=== PATIENT | male | born 1970 | race Caucasian/White ===

== ENCOUNTER 2017-03-13 21:07 | Observation (INO) | payer BC ==
[~2017-03-13] VITALS: Ht 190.5 cm; Wt 104.4 kg
[2017-03-13 21:30] LABS: HEMATOCRIT 48.2 % (38.0-50.0); MCH 29.9 PG (29.0-34.0); MCV 87.8 FL (86-99); MEAN PLAT.VOLUME 11.5 uM^3 (9.0-12.4); PLATELET COUNT 176 K/uL (156-360); RBC DIS.WIDTH-CV 12.3 % (11.8-14.6); RBC DIS.WIDTH-SD 39.8 % (39-53); RED BLOOD COUNT 5.49 M/uL (4.00-5.50); WHITE BLOOD COUNT 5.9 K/uL (4.1-10.2)
[2017-03-13 21:38] LABS: CHLORIDE 105 mEq/L (99-109); POTASSIUM 3.9 mEq/L (3.7-5.4); SODIUM 141 mEq/L (136-147)
[2017-03-13 21:39] LABS: GLUCOSE 105 mg/dL (70-99)
[2017-03-13 21:41] LABS: ANION GAP 10 MEQ/L (2-14)
[2017-03-13 21:44] LABS: UREA NITROGEN (BUN) 20 mg/dL (9-23)
[2017-03-13 21:46] LABS: GFR ESTIMATE (CALCULATED) 58 mL/min/
[2017-03-13 21:51] LABS: TROP-I INTERPRETATION NEGATIVE; TROPONIN-I < 0.01 ng/mL (0.0-0.30)
[2017-03-13] MEDS ORDERED: AMLODIPINE BESYL5 MG PO (22:08)
[2017-03-13] MEDS ORDERED: LO-DOSE ASPIRIN81 M2 PO (22:09)
[2017-03-14] VITALS: BP 174/96
[2017-03-14 04:00] VITALS: BP 111/56
[2017-03-14 04:16] LABS: HEMATOCRIT 43.3 % (38.0-50.0); MCH 30.1 PG (29.0-34.0); MCHC 34.2 G/DL (30.0-36.0); MEAN PLAT.VOLUME 11.3 uM^3 (9.0-12.4); PLATELET COUNT 154 K/uL (156-360); RBC DIS.WIDTH-CV 12.3 % (11.8-14.6); RBC DIS.WIDTH-SD 39.8 % (39-53); RED BLOOD COUNT 4.92 M/uL (4.00-5.50); WHITE BLOOD COUNT 6.7 K/uL (4.1-10.2)
[2017-03-14 04:34] LABS: CHLORIDE 107 mEq/L (99-109); POTASSIUM 4.1 mEq/L (3.7-5.4); SODIUM 141 mEq/L (136-147)
[2017-03-14 04:36] LABS: GLUCOSE 92 mg/dL (70-99)
[2017-03-14 04:37] LABS: ANION GAP 10 MEQ/L (2-14); TROP-I INTERPRETATION NEGATIVE; TROPONIN-I < 0.01 ng/mL (0.0-0.30)
[2017-03-14 04:38] LABS: TOTAL BILIRUBIN 1.3 mg/dL (0.0-1.0)
[2017-03-14 04:40] LABS: ALKALINE PHOSPHATASE 51 IU/L (3-129); GFR ESTIMATE (CALCULATED) > 59 mL/min/
[2017-03-14 04:41] LABS: UREA NITROGEN (BUN) 20 mg/dL (9-23)
[2017-03-14 05:16] LABS: HDL CHOLESTEROL 31 MG/DL (Desirable>=40); LDL CHOLESTEROL 143 mg/dL (Desirable<100); NON-HDL CHOLESTEROL 169 mg/dL (Desirable<160); TOTAL CHOLESTEROL 200 mg/dL (Desirable<200); TRIGLYCERIDES 132 MG/DL (Normal: <150)
[2017-03-14 06:48] LABS: Estimated Average Glucose 111 mg/dL (70-123); HEMOGLOBIN A1c (GLYCOHEMOGLOB) 5.5 % HGB (Below 5.7)
[2017-03-14 08:13] VITALS: BP 142/82
[2017-03-14 11:23] VITALS: BP 165/95
[2017-03-14 11:46] LABS: TROP-I INTERPRETATION NEGATIVE; TROPONIN-I 0.02 ng/mL (0.0-0.30)
[2017-03-14] MEDS ORDERED: ATORVASTATIN CA20 MG PO (13:57)
[2017-03-14] MEDS ORDERED: ASPIR-LOW81 MG PO (14:30)
== END 2017-03-14 15:03 | disposition home or self-care (01) ==
LOC: EME 21:07 → 5WEST 22:57 → EDOF 22:57 → 5WEST 23:55
PROVIDERS: Internal Medicine
DX: R07.89 Other chest pain (principal); N17.9 Acute kidney failure, unspecified; I10 Essential (primary) hypertension; E78.5 Hyperlipidemia, unspecified; Z91.14 Patient's other noncompliance with medication regimen; I45.10 Unspecified right bundle-branch block; R94.31 Abnormal electrocardiogram [ECG] [EKG]
CPT/HCPCS: 71020; 80048; 80053; 80061; 83036; 84484; 85027; 93005; 93306; 99281; 99284; G0378; J1644; J7030

== ENCOUNTER 2017-03-31 23:50 | Emergency (ER) | payer BC ==
[~2017-03-31] VITALS: Ht 190.5 cm; Wt 102.1 kg
[~2017-03-31 23:50] MED LIST: AMLODIPINE BESYL5 MG PO; ASPIR-LOW81 MG PO; ATORVASTATIN CA20 MG PO; LO-DOSE ASPIRIN81 M2 PO
[2017-04-01 00:19] LABS: MCH 30.2 PG (29.0-34.0); MCHC 34.3 G/DL (30.0-36.0); MEAN PLAT.VOLUME 11.1 uM^3 (9.0-12.4); PLATELET COUNT 173 K/uL (156-360); RBC DIS.WIDTH-SD 38.5 % (39-53)
[2017-04-01 00:35] LABS: CHLORIDE 106 mEq/L (99-109); POTASSIUM 3.9 mEq/L (3.7-5.4); SODIUM 140 mEq/L (136-147)
[2017-04-01 00:37] LABS: GLUCOSE 109 mg/dL (70-99)
[2017-04-01 00:38] LABS: ANION GAP 10 MEQ/L (2-14)
[2017-04-01 00:41] LABS: GFR ESTIMATE (CALCULATED) > 59 mL/min/
[2017-04-01 00:42] LABS: UREA NITROGEN (BUN) 15 mg/dL (9-23)
[2017-04-01 00:50] LABS: TROP-I INTERPRETATION NEGATIVE; TROPONIN-I < 0.01 ng/mL (0.0-0.30)
[2017-04-01 01:08] LABS: D-DIMER ELISA 0.28 mg/L FEU (< 0.57)
[2017-04-01 01:47] VITALS: BP 166/102
== END 2017-04-01 01:47 | disposition home or self-care (01) ==
LOC: EME 23:50
DX: R55 Syncope and collapse (principal); I10 Essential (primary) hypertension; R07.89 Other chest pain
CPT/HCPCS: 71020; 80048; 84484; 85027; 85379; 93005; 99281; 99284